=== PATIENT | male | born 1945 | race Caucasian/White ===

== ENCOUNTER 2018-10-30 10:05 | Observation (INO) | payer MEDICARE, OTHER ==
[2018-10-30] MEDS ORDERED: Nitroglycerin 0.4 MG TAB (25 Tab Bottle) ONE (10:31)
[2018-10-30 10:39] LABS: #Basophils 0.1 thou/uL (0.0-0.2); #Eosinphils 0.1 thou/uL (0.0-0.7); #Lymphocytes 2.5 thou/uL (1.20-3.40); #Monocytes 0.6 thou/uL (0.11-0.59); %Basophils 1.6 % (0.0-1.0); %Eosinophils 1.9 % (0.0-10.0); %Lymphocytes 34.3 % (21.0-51.0); %Monocytes 7.8 % (0.0-10.0); %Neutrophils 54.4 % (42.0-75.0); Hemoglobin 15.6 g/dL (14.0-18.0); Mean Corpuscular HGB CONC 33.2 g/dL (32.0-36.0); Mean Corpuscular Hemoglobin 30.5 pg (27.0-31.0); Mean Corpuscular Volume 91.8 fL (78.0-98.0); Mean Platelet Volume 10.3 fL (7.4-10.4); Platelet Count 129 thou/uL (130-400); RBC Distribution Width 11.3 % (11.5-14.5); Red Blood Cell (RBC) Count 5.12 mill/uL (4.70-6.10); White Blood Cell (WBC) Count 7.3 thou/uL (4.8-10.8)
[2018-10-30 10:51] LABS: ALT (SGPT) 55 U/L (8-55); AST (SGOT) 49 U/L (5-34); Albumin 4.3 g/dL (3.4-4.8); Alkaline Phosphatase 66 U/L (40-150); Anion Gap 15 mmol/L (10-20); BUN (Urea Nitrogen) 15 mg/dL (8.4-25.7); Bilirubin, Total 0.7 mg/dL (0.2-1.2); Calc. Creatinine Clearance 0 mL/min (70-130); Carbon Dioxide 25 mmol/L (23-31); Chloride 103 mmol/L (98-107); Estimated GFR-MDRD 45; Globulin 3.6 g/dL (2.4-3.5); Glucose 100 mg/dL (83-110); Lipase 667 U/L (8-78); Potassium 4.4 mmol/L (3.5-5.1); Protein, Total 7.9 g/dL (5.8-8.1); Sodium 139 mmol/L (136-145)
--- NOTE | 2018-10-30 12:09 | RAD ---
CHEST 1 VIEW: HISTORY: Chest pain. COMPARISON: None. FINDINGS: Lungs are clear. No pneumothorax or effusion. Cardiac silhouette is mildly enlarged. Moderate degenerative changes of the acromioclavicular joints. IMPRESSION: Mild cardiomegaly; otherwise, unremarkable exam. POS: [facility]
[2018-10-30 12:46] VITALS: BMI 29.9
[2018-10-30] MEDS ORDERED: Acetaminophen 325 MG TAB PO PRN (13:09)
[2018-10-30] MEDS ORDERED: Ondansetron ODT 4 MG TAB SL PRN (13:09)
[2018-10-30] MEDS ORDERED: Ondansetron PF 4 MG/2 ML Vial IVP PRN (13:09)
[2018-10-30 14:00] LABS: Troponin I Less than 0.010 ng/mL (< 0.028)
[2018-10-30] MEDS: Alfuzosin 10 MG TABDR...ER PO SCH ×2 (15:32→20:15)
[2018-10-30] MEDS: HYDROcodone/Acetaminophen 5/325 mg Tablet PO PRN ×2 (16:21→20:16)
--- NOTE | 2018-10-30 16:35 | PDOC.EVN ---
Event Note - Event Note Event Note: Mr. Plascencia was seen today with Mario CORRIGAN. He is complaining of pain in his left upper chest, and shoulder, radiating to his back and down his left arm. It initially started a few days ago, while he was doing some yard work, went away and then returned unprovoked. He has some dyspnea associated with this. I agree with stress test to rule out CAD- however the pain is likely musculoskeletal. Unclear the significance of the elevated lipase. He has no symptoms attributed to gall bladder disease, and on exam he does not have any abdominal tenderness. He denies any weight loss or trouble with eating. Will repeat in the AM, and check a lipid panel in the AM.
[2018-10-30 16:48] LABS: Troponin I Less than 0.010 ng/mL (< 0.028)
[2018-10-30] MEDS: Famotidine 20 MG TAB PO SCH (20:15)
[2018-10-30] MEDS ORDERED: Atorvastatin Calcium 20 MG TAB PO SCH (21:00)
[2018-10-30] MEDS ORDERED: traZODone HCl 50 MG TAB PO SCH (21:00)
[2018-10-30] MEDS ORDERED: Gabapentin 300 MG CAP PO SCH (21:00)
--- NOTE | 2018-10-31 00:08 | HP ---
PRIMARY CARE PHYSICIAN: Reinaldo GOMEZ. CHIEF COMPLAINT: Left-sided chest pain radiating down to left arm. HISTORY OF PRESENT ILLNESS: Mr. Plascencia is a pleasant 73-year-old male, who has a past medical history of hypertension, hyperlipidemia, and gout, who had presented to [facility] with complaint of left-sided chest pain that had radiated to left shoulder and down left upper arm. He states this pain started last Tuesday after he had done some yard work, which included raking his yard. This pain had lasted on and off throughout that week until about Tuesday. He states Tuesday and Tuesday, he was essentially pain-free. However, pain returned late last night. He states the pain was more sharp than it was last week, around 8/10 pain scale. He had denied any shortness of breath or any trauma. He had denied fever, chills, or cough. In the ER, his lab work showed troponin less than 0.010, however, it did show a creatinine of 1.53, the patient denied any history of any kidney disease at this time. Labs also indicated a lipase of 667, he had denied any abdominal pain, nausea, or vomiting. It was determined that patient would be admitted under observation for further workup of his chest pain. 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 SURGICAL HISTORY: Left kidney removal, surgery of left elbow, jaw surgery, right knee scope, cataract surgery, and tonsillectomy. PSYCHIATRIC HISTORY: PTSD. SOCIAL HISTORY: The patient admits to drinking under 5 drinks per month. Denies cigarette or drug use. REVIEW OF SYSTEMS: CONSTITUTIONAL: Denies fever or chills. Denies weight loss or weight gain. EYES: Denies any eye pain or vision changes. ENT: Denies any ears, nose, or throat complaints. Denies sore throat or drainage. CARDIOVASCULAR: Does report left-sided chest pain. This seems to be reproducible with movement and radiates down the left arm and up to the left shoulder and upper back. He denies any diaphoresis, syncope, or palpitations. RESPIRATORY: Denies cough or shortness of breath. GASTROINTESTINAL: Denies any abdominal pain, constipation, diarrhea, nausea, or vomiting. MUSCULOSKELETAL: Denies any swelling or weakness. Denies any pain other than listed above. SKIN: Denies any skin lesions or bruising. NEUROLOGICAL: Denies any weakness, dizziness, or loss of sensation. PSYCHIATRIC: Denies any suicidal or homicidal ideation, however, does report some PTSD. ALLERGIES: PENICILLIN. CURRENT MEDICATIONS: 1. Amlodipine 5 mg p.o. daily. 2. Alfuzosin 10 mg p.o. t.i.d. 3. Gabapentin 300 mg p.o. at bedtime. 4. Atorvastatin 20 mg p.o. daily. 5. Allopurinol 300 mg p.o. daily. 6. Trazodone 100 mg p.o. at bedtime. 7. Multivitamin one tablet p.o. b.i.d. 8. Aspirin 81 mg p.o. daily. 9. Fish oil 1000 mg p.o. daily. PHYSICAL EXAMINATION: VITAL SIGNS: Blood pressure 166/78, pulse 82, respirations 18, temperature 97.5 degrees Fahrenheit, and O2 saturations 96% on room air. GENERAL: Alert and oriented x3. No acute distress noted. HEAD: Normocephalic and atraumatic. EENT: Pupils are round and reactive to light. Extraocular muscles intact. No nasal deformity. Oropharynx clear without erythema. Moist mucous membranes. NECK: Supple. Trachea midline. No bruit noted. RESPIRATORY: Clear to auscultation bilaterally. No wheezes. No rales. No rhonchi. Chest expansion equally. CARDIOVASCULAR: Positive S1 and S2. Regular rate and rhythm. Reproducible chest pain with movement on left side. ABDOMEN: Soft, nontender, nondistended. Bowel sounds present. No masses noted. No guarding. No rebound. MUSCULOSKELETAL: Moves all extremities equally. Strength 5+ bilaterally. Radial and pedal pulses 2+ bilaterally. No edema noted. NEUROLOGIC: Sensation intact. Cranial nerves 2 through 12 intact. No focal deficits noted. SKIN: Warm, dry, and intact. No lesions noted. PSYCHIATRIC: Good mood and affect. LABORATORY DATA: WBC 7.3, RBC 5.12, hemoglobin 15.6, and platelets 129. Sodium 139, potassium 4.4, BUN 15, creatinine 1.53, estimated GFR 45, glucose 100, AST 49, ALT 55, alkaline phosphatase 56. Troponin less than 0.010 x 3. Lipase 667. DIAGNOSTIC IMAGING: Chest x-ray showed mild cardiomegaly, otherwise unremarkable. ASSESSMENT AND PLAN: 1. Chest pain, likely musculoskeletal secondary to yard work, however, we will rule out cardiac etiology with stress test. Cardiac markers unremarkable, less than 0.010 x3. We will monitor the patient's vitals and overall progress. He will be continued on home medications at this time. Further changes pending patient's progress. 2. Elevated lipase. The patient remains asymptomatic at this time. We will recheck lipase in the morning. We will order abdomen ultrasound for further evaluation. 3. Hypertension. Continue the patient's home medications at this time. Monitor vital signs closely. Further adjustments as needed. 4. Acute kidney injury. Creatinine was found to be 1.53. We will monitor the patient's BMP closely, hold nephrotoxic medications at this time. We will encourage increased oral intake. 5. Deep vein thrombosis prophylaxis with Lovenox. 6. Gastrointestinal prophylaxis with Pepcid twice daily. Disposition and further medical management pending patient's progress and workup. The patient will likely be discharged to home to follow up with his PCP at the [facility] in [place] pending negative workup, likely discharged in under 2 midnights. Job ID: [id number] [facility]
[2018-10-31] MEDS: HYDROcodone/Acetaminophen 5/325 mg Tablet PO PRN ×2 (01:44→08:28)
[2018-10-31 04:47] LABS: Anion Gap 10 mmol/L (10-20); BUN (Urea Nitrogen) 16 mg/dL (8.4-25.7); Calc. Creatinine Clearance 65 mL/min (70-130); Calcium 8.9 mg/dL (7.8-10.44); Carbon Dioxide 29 mmol/L (23-31); Cardiac Risk 3.9 (Less than 4.5); Chloride 102 mmol/L (98-107); Cholesterol 117 mg/dl (< 200 Desired); Estimated GFR-MDRD 45; Glucose 96 mg/dL (83-110); HDL Cholesterol 30 mg/dL (>60 Neg Risk); LDL Cholesterol, Calculated 48 mg/dL; Lipase 115 U/L (8-78); Potassium 4.2 mmol/L (3.5-5.1); Sodium 137 mmol/L (136-145); Triglycerides 195 mg/dL (Less than 150)
[2018-10-31 04:50] LABS: #Basophils 0.1 thou/uL (0.0-0.2); #Eosinphils 0.2 thou/uL (0.0-0.7); #Lymphocytes 2.6 thou/uL (1.20-3.40); #Monocytes 0.6 thou/uL (0.11-0.59); #Neutrophils 2.7 thou/uL (1.40-6.50); %Basophils 1.1 % (0.0-1.0); %Eosinophils 3.3 % (0.0-10.0); %Lymphocytes 41.7 % (21.0-51.0); %Monocytes 10.1 % (0.0-10.0); %Neutrophils 43.8 % (42.0-75.0); Hemoglobin 14.7 g/dL (14.0-18.0); Mean Corpuscular HGB CONC 34.5 g/dL (32.0-36.0); Mean Corpuscular Hemoglobin 33.3 pg (27.0-31.0); Mean Corpuscular Volume 96.6 fL (78.0-98.0); Mean Platelet Volume 8.5 fL (7.4-10.4); Platelet Count 138 thou/uL (130-400); RBC Distribution Width 11.8 % (11.5-14.5); Red Blood Cell (RBC) Count 4.42 mill/uL (4.70-6.10); White Blood Cell (WBC) Count 6.3 thou/uL (4.8-10.8)
[2018-10-31] MEDS: Famotidine 20 MG TAB PO SCH (08:28)
[2018-10-31] MEDS ORDERED: Aspirin 81 mg Enteric Coated Tablet PO SCH (09:00)
[2018-10-31] MEDS ORDERED: Amlodipine 5 MG TAB PO SCH (09:00)
[2018-10-31] MEDS ORDERED: Enoxaparin Sodium 40 MG/0.4 ML SYRINGE SC SCH (09:00)
[2018-10-31] MEDS ORDERED: Allopurinol 300 MG TAB PO SCH (09:00)
--- NOTE | 2018-10-31 09:45 | ULT ---
SONOGRAM ABDOMEN COMPLETE: Date: 10/31/18 HISTORY: Abnormal liver function tests. Abnormal lipase. FINDINGS: Gallbladder is unremarkable without stone. Common duct is 0.4 cm. Cyst in the right liver lobe measur es up to 3.3 cm. No intrahepatic biliary dilatation. No free fluid. Left kidney is surgically absent. Cortical cyst of the right kidney measures up to 3.8 cm at the superior pole. No hydronephrosis. The spleen and visualized portions of the abdominal aorta, IVC, and pancreas are unremarkable. IMPRESSION: 1. Status post left nephrectomy. 2. Hepatic and right renal cysts. 3. No acute abnormalities are demonstrated. POS: [facility]
[2018-10-31 11:54] VITALS: BP 177/72; TEMP 97.4
[2018-10-31] MEDS: Alfuzosin 10 MG TABDR...ER PO SCH (12:07)
--- NOTE | 2018-10-31 12:46 | NM ---
NUCLEAR MEDICINE CARDIAC MYOCARDIAL PERFUSION SPECT EJECTION FRACTION STUDY WALL MOTION CINE: HISTORY: A 73-year-old male with hypertension and dyslipidemia presents with chest pain. TECHNIQUE: Number of days: 2 Rest study: Tc99m sestamibi (Cardiolite) dose: 29.5 mCi Pharmacologic stress: adenosine dose: 57.7 mg Stress study: Tc99m sestamibi (Cardiolite) dose: 29.0 mCi FINDINGS: CARDIAC (MYOCARDIAL PERFUSION) SPECT Distribution of sestamibi is homogeneous throughout the left ventricle, with no fixed or reversible m yocardial perfusion defects. EJECTION FRACTION STUDY EF = 68% WALL MOTION CINE The left ventricular wall motion is normal. There is normal systolic wall thickening. IMPRESSION: Normal. fermín[] POS: [facility]
== END 2018-10-31 13:20 | disposition home or self-care (01) ==
LOC: SCSER 10:05 → 2SW 12:41
PROVIDERS: ADMIT Family Medicine; ATTEND Family Medicine
DX: R07.9 Chest pain, unspecified (principal); R74.8 Abnormal levels of other serum enzymes; N17.9 Acute kidney failure, unspecified; I10 Essential (primary) hypertension; E78.5 Hyperlipidemia, unspecified; M10.9 Gout, unspecified; F43.10 Post-traumatic stress disorder, unspecified; Z90.89 Acquired absence of other organs; Z88.0 Allergy status to penicillin; Z79.82 Long term (current) use of aspirin; Z79.899 Other long term (current) drug therapy; Z98.890 Other specified postprocedural states
CPT/HCPCS: 71045; 76700; 78452; 80048; 80053; 80061; 83690 ×2; 84484 ×2; 85025 ×2; 93005; 93017; 96372; 99285; A9500; G0378; 36415; J0153; J1650

== ENCOUNTER 2019-02-13 13:26 | Outpatient (CLI) | payer OTHER ==
--- NOTE | 2019-02-13 15:02 | CT ---
NONCONTRAST HEAD CT CT ANGIOGRAM HEAD: Date: 02/13/19 HISTORY: Aneurysm noted on previous exam. COMPARISON: None. TECHNIQUE: Noncontrast head CT is performed in the axial plane. CT angiogram of head performed in the axial plan e. Three dimensional reformatted images are submitted for interpretation. FINDINGS: NONCONTRAST HEAD CT: No parenchymal hemorrhage. No extra-axial hematoma. No midline shift. Basilar cisterns are patent. Br ain volume, age-appropriate. Cortical walls-white matter differentiation preserved. Ventricles and sul ci are patent and symmetric. Calvarium is intact. Adequate aeration of the sinuses and mastoid air cells. Cavernous carotid athero sclerosis. Postcontrast head CT demonstrates normal enhancement of the brain parenchyma. Cortical walls-white mat tered differentiation is preserved. CT ANGIOGRAM: There is symmetric enhancement and luminal diameter of distal cervical and intracranial internal trujillo tid arteries. There is atherosclerosis of both cavernous segments without significant stenosis. Anterior Circulation: The left and right A1 and M1 segments have symmetric enhancement and luminal d iameter. Proximal A2 segments and proximal MCA branches are also symmetric. No aneurysm or vascular o cclusion of the anterior circulation. Posterior Circulation: Limited evaluation of the right PICA artery origin. Left PICA artery appears to be normal in caliber. Both vertebral arteries supply a normal appearing basilar artery. No evidenc e of stenosis or occlusion. No evidence of aneurysm in the basilar artery. The left CLOTH LAMINATING SUPERVISOR has a o rigin. The right P1 segment is unremarkable. No evidence of a CLOTH LAMINATING SUPERVISOR aneurysm. IMPRESSION: No evidence of aneurysm. Comparison with prior imaging would be beneficial. POS: [facility]
== END 2019-02-13 13:27 | disposition home or self-care (01) ==
LOC: TBSIIMAG 13:26
PROVIDERS: ATTEND Neurological Surgery
DX: I67.1 Cerebral aneurysm, nonruptured (principal)
CPT/HCPCS: 70496; 82565

== ENCOUNTER 2020-03-13 13:42 | Emergency (ER) | payer OTHER ==
[2020-03-13 14:03] LABS: #Basophils 0.1 thou/uL (0.0-0.2); #Monocytes 0.7 thou/uL (0.11-0.59); #Neutrophils 8.9 thou/uL (1.40-6.50); %Basophils 0.4 % (0.0-1.0); %Eosinophils 0.3 % (0.0-10.0); %Lymphocytes 17.4 % (21.0-51.0); %Monocytes 6.3 % (0.0-10.0); %Neutrophils 75.5 % (42.0-75.0); Hemoglobin 15.9 g/dL (14.0-18.0); Mean Corpuscular HGB CONC 33.6 g/dL (32.0-36.0); Mean Corpuscular Hemoglobin 32.6 pg (27.0-31.0); Mean Corpuscular Volume 97.1 fL (78.0-98.0); Mean Platelet Volume 8.6 fL (7.4-10.4); Platelet Count 155 thou/uL (130-400); RBC Distribution Width 11.9 % (11.5-14.5); Red Blood Cell (RBC) Count 4.89 mill/uL (4.70-6.10); White Blood Cell (WBC) Count 11.7 thou/uL (4.8-10.8)
[2020-03-13 14:04] LABS: Bacteria/HPF None Seen HPF (None Seen); Bilirubin Negative (Negative); Blood, Urine 2+ (Negative); Clarity Clear (Clear); Glucose, Urine (Dipstick) Normal (Negative); Leukocyte Negative Leu/uL (Negative); Nitrite Negative (Negative); Protein, Urine (Dipstick) Negative (Neg-Trace); Squamous Epithelial 0-3 HPF (0-3); Urobilinogen Normal mg/dL (Less than 2); WBC/HPF 0-3 HPF (0-3)
[2020-03-13 14:26] LABS: ALT (SGPT) 39 U/L (8-55); AST (SGOT) 34 U/L (5-34); Albumin 4.5 g/dL (3.4-4.8); Alkaline Phosphatase 71 U/L (40-110); Anion Gap 16 mmol/L (10-20); BUN (Urea Nitrogen) 19 mg/dL (8.4-25.7); Bilirubin, Total 0.9 mg/dL (0.2-1.2); Calc. Creatinine Clearance 0 mL/min (70-130); Calcium 9.6 mg/dL (7.8-10.44); Carbon Dioxide 23 mmol/L (23-31); Chloride 102 mmol/L (98-107); Estimated GFR-MDRD 34; Globulin 3.3 g/dL (2.4-3.5); Glucose 108 mg/dL (83-110); Potassium 4.1 mmol/L (3.5-5.1); Protein, Total 7.8 g/dL (5.8-8.1); Sodium 137 mmol/L (136-145)
[2020-03-13] MEDS ORDERED: Morphine 4 MG/ML VIAL ONE ×2 (14:41→17:11)
[2020-03-13] MEDS ORDERED: Ondansetron PF 4 MG/2 ML Vial ONE (14:41)
--- NOTE | 2020-03-13 15:45 | CT ---
EXAM: ABDOMEN AND PELVIC CT SCAN WITHOUT IV CONTRAST: 03/13/20 HISTORY: Right flank pain. FINDINGS: The lung bases appear clear. There is some mesenteric fat herniation around the esophagus. 2.7 cm di ameter cyst involving the inferior right lobe of the liver. Gallbladder, pancreas, spleen, and right adrenal glands are unremarkable. Status post left nephrectomy. Moderate hydroureteronephrosis of the right kidney with several nonobstructing right renal calculi. 3 cm diameter right upper pole renal cy st. Minimal sigmoid colon diverticulosis without acute diverticulitis. Moderately obstructing 0.4 m d iameter calculus at the right ureterovesicular junction. Small umbilical hernia and moderate sized b ilateral fat containing inguinal hernias. Urinary bladder is otherwise unremarkable. Prostate gland i s unremarkable. IMPRESSION: Obstructing distal right ureteral calculus with hydroureteronephrosis and some perirenal fat strandin g. Nonobstructing right renal calculi. Simple appearing liver and right renal cyst. Bilateral fat con taining inguinal hernias and tiny umbilical fat containing hernia. Multilevel lumbar spinal stenosis. POS: [facility]
== END 2020-03-13 18:51 | disposition home or self-care (01) ==
LOC: ERS 13:42
DX: N13.2 Hydronephrosis with renal and ureteral calculous obstruction (principal); E78.5 Hyperlipidemia, unspecified; E78.00 Pure hypercholesterolemia, unspecified; F43.10 Post-traumatic stress disorder, unspecified; I10 Essential (primary) hypertension; M10.9 Gout, unspecified; Z87.891 Personal history of nicotine dependence; Z79.82 Long term (current) use of aspirin; Z79.899 Other long term (current) drug therapy
CPT/HCPCS: 36415; 74176; 80053; 81003; 81015; 83690; 85025; 87086; 96361; 96374; 96375; 96376; J2270; J2405

== ENCOUNTER 2020-06-03 08:58 | Outpatient (CLI) | payer OTHER ==
--- NOTE | 2020-06-03 10:22 | CT ---
EXAM: CT ANGIOGRAM OF THE HEAD INDICATION: Stroke COMPARISON: 02/13/2019 TECHNIQUE: CT angiogram of the head and neck are performed in the axial plane. Three-dimensional refo rmatted images are submitted for interpretation. FINDINGS: NONCONTRAST head CT: No parenchymal hemorrhage No extra-axial hematoma No midline shift Brain volume, age-appropriate Cortical walls-white matter differentiation is preserved. Minimal chronic small vessel ischemic change s of the white matter. Adequate aeration of the sinuses and mastoid air cells. Calvarium is intact CTA OF THE HEAD WITH AND WITHOUT CONTRAST: POSTCONTRAST CT OF BRAIN: Pathologic enhancement: No pathologic enhancement the brain. CTA OF THE BRAIN: Intracranial internal carotid arteries:Minimal atherosclerosis. Anterior circulation: Appropriate enhancement and luminal diameter. No significant stenosis or aneury sm. Intracranial vertebral arteries: Appropriate enhancement and luminal diameter. Limited evaluation of the right PICA artery origin. Left PICA artery origin has appropriate enhancement and luminal diameter Posterior circulation: Both vertebral arteries supply a normal appearing basilar artery. Appropriate enhancement and luminal diameter. Left RESEARCH EPIDEMIOLOGIST has a origin. IMPRESSION: 1. No hemodynamically significant stenosis, occlusion or aneurysmal formation.
[2020-06-03] MEDS ORDERED: Iopamidol-370 76% 500 ML 1 ML ONE (16:25)
== END 2020-06-03 08:59 | disposition home or self-care (01) ==
LOC: BICCT 08:58
PROVIDERS: ATTEND Neurological Surgery
DX: I67.1 Cerebral aneurysm, nonruptured (principal)
CPT/HCPCS: 70496; 82565; Q9967